=== PATIENT | female | born 1975 | race Caucasian/White ===

== ENCOUNTER 2017-01-12 04:00 | Emergency (ER) | payer OTHER ==
[~2017-01-12] VITALS: Ht 175.3 cm; Wt 55.0 kg
[~2017-01-12 04:00] MED LIST: ALBU1AER INH; AUGM875T PO; LEXA20TA PO
[2017-01-12 04:19] VITALS: BP 109/74; PULSE 79; RESP 16; TEMP 98.5; O2SAT 97
[2017-01-12] MEDS ORDERED: LEXA20TA PO (04:24)
--- NOTE | 2017-01-12 04:25 | PD ---
HPI Chief Complaint: Medical Clearance Time Seen by Provider: 04:19 Travel History International Travel<30 days: No Contact w/Intl Traveler<30days: No Traveled to known affect area: No History of Present Illness HPI 41-year-old white female presents to emergency department by EMS for medical clearance for detox. The patient states that she went out to [facility] earlier today but there are no beds available for detox. She states that she typically drinks a bottle of vodka a day. [facility] advised her to continue to drink and follow-up 1 a bed becomes available. She states that her significant other would not get her the vodka she typically drinks but rather got her a bottle of wine. She states that this was not significant enough. She feels as if she may be going through withdrawal. She states that she closed her eyes and sees colors. No palpitations, tachycardia or tremulousness. She denies any suicidal or homicidal ideation. No nausea vomiting. The patient states that in 2 weeks she'll be going to [place] for a inpatient 60 day rehabilitation. The patient states that she was hoping to become sober before she went into rehabilitation. PFSH Past Medical History Narrative Medical Alcohol abuse, Right forearm fracture Tetanus Vaccination: < 5 Years ?: Not LMP: 1 week Past Surgical History Narrative Surgical Right forearm fracture with ORIF Social History Alcohol Use: Yes Tobacco Use: Yes Substance Use: No Allergies-Medications (Allergen,Severity, Reaction): Coded Allergies: Wellbutrin (Verified Allergy, Intermediate, HIVES, 01/12/17) Reported Meds & Prescriptions Reported Meds & Active Scripts Active Reported Lexapro (Escitalopram Oxalate) 20 Mg Tab 20 Mg PO DAILY Review of Systems Except as stated in HPI: all other systems reviewed are Neg Physical Exam Narrative GENERAL: Well-nourished, well-developed patient. The patient is resting comfortable. She does not appear to be in any distress. She is not tachycardic nor is she hypertensive. No tremulousness. SKIN: Warm and dry. HEAD: Normocephalic and atraumatic. EYES: No scleral icterus. No injection or drainage. ENT: No nasal drainage noted. Mucous membranes pink. Airway patent. NECK: Supple, trachea midline. Moves head freely without obvious discomfort. CARDIOVASCULAR: Regular rate and rhythm without murmurs, gallops, or rubs. RESPIRATORY: Breath sounds equal bilaterally. No accessory muscle use. GASTROINTESTINAL: Abdomen soft, non-tender, nondistended. EXTREMITIES: No cyanosis or edema. BACK: Nontender without obvious deformity. No CVA tenderness. NEURO: Patient is alert and oriented. no sensorimotor deficits. Nonfocal. Normal speech. PSYCH: No delusions. No auditory or visual hallucinations. Data Data Last Documented VS Vital Signs Date Time Temp Pulse Resp B/P Pulse Ox O2 Delivery O2 Flow Rate FiO2 01/12/17 04:19 98.5 79 16 109/74 97 Orders Alcohol (Ethanol) (01/12/17 04:16) Lorazepam (Ativan) (01/12/17 04:30) [facility] Medical Decision Making Medical Screen Exam Complete: Yes Emergency Medical Condition: Yes Medical Record Reviewed: Yes Differential Diagnosis Differential diagnoses: Alcohol intoxication, substance abuse, electrolyte abnormality, malingering Narrative Course The patient states that she feels that she is going through withdrawals. She states that she is seeing colors when she closed her eyes. I see no overt physical findings of withdrawal. She is not tachycardic, tremulous, or hypertensive. The patient is given the benefit of the doubt and given 1 mg of Ativan by mouth. We will perform an alcohol level. We will attempt to contact her significant. We have contacted the [facility] and they have accepted her for detox. We will arrange transportation. This is chronic alcohol abuse Diagnosis Primary Impression: Chronic alcohol abuse Med/Other Pt SpecificInfo: No Change to Meds Disposition: 70 TRANSFER TO OTHER FACILITY Condition: Stable Denny Kay Jan 12, 2017 04:25 Condition: Stable Denny Kay Jan 12, 2017 04:25
[2017-01-12] MEDS ORDERED: LORazepam 1 MG TAB PO ONE ×2 (04:30→10:15)
[2017-01-12 07:38] VITALS: BP 112/76; PULSE 78; RESP 18; O2SAT 100
[2017-01-12 10:12] VITALS: BP 127/64; PULSE 78; RESP 18; O2SAT 99
== END 2017-01-12 10:33 | disposition home or self-care (01) ==
LOC: NEPD 04:00
DX: F10.10 Alcohol abuse, uncomplicated (principal); Y90.8 Blood alcohol level of 240 mg/100 ml or more
CPT/HCPCS: 80307; 99285

== ENCOUNTER 2017-01-16 08:55 | Emergency (ER) | payer OTHER ==
[~2017-01-16 08:55] MED LIST changes: -ALBU1AER INH; -AUGM875T PO
[2017-01-16 08:56] VITALS: PULSE 101; RESP 26; TEMP 97.8; O2SAT 100
[2017-01-16 09:00] VITALS: BP 132/76
[2017-01-16] MEDS ORDERED: SODIUM CHLOR 0.9% 1000 ML INJ 1,000 ML IV ONE (09:15)
[2017-01-16] MEDS ORDERED: LORazepam 2 MG/ML VIAL IV PUSH ONE (09:15)
--- NOTE | 2017-01-16 09:27 | PD ---
HPI Chief Complaint: Alcohol/Drug Intoxication Time Seen by Provider: 09:12 Travel History International Travel<30 days: No Contact w/Intl Traveler<30days: No Traveled to known affect area: No History of Present Illness HPI Is a 41 year-old woman presents to the emergency department complaining of alcohol withdrawal symptoms. She states that she is due to fly out to [place] in 4 days for alcohol treatment. She states that she with the [facility] and they did not have a bed for her. She is anxious. She describes tingling and cramping in her hands. She is worried because she's had seizures before. States she drinks alcohol daily. Last drink yesterday. History Past Medical History Narrative Medical Tobacco use Anxiety/depression Social History Alcohol Use: Yes Tobacco Use: Yes Allergies-Medications (Allergen,Severity, Reaction): Coded Allergies: Wellbutrin (Verified Allergy, Intermediate, HIVES, 01/12/17) Reported Meds & Prescriptions Reported Meds & Active Scripts Active Chlordiazepoxide HCl 25 Mg Capsule 25 Mg PO Q8HR PRN Reported Lexapro (Escitalopram Oxalate) 20 Mg Tab 20 Mg PO DAILY Review of Systems Except as stated in HPI: all other systems reviewed are Neg Physical Exam Narrative GENERAL: 41 year-old woman, anxious and tearful. SKIN: Focused skin assessment warm/dry. NECK: Trachea midline. No JVD. CARDIOVASCULAR: Regular rate and rhythm. No murmur appreciated. RESPIRATORY: Patient's hyperventilating. Does not appear to be in respiratory distress however. GASTROINTESTINAL: Abdomen soft, non-tender, nondistended. Hepatic and splenic margins not palpable. MUSCULOSKELETAL: No obvious deformities. No clubbing. No cyanosis. No edema. NEUROLOGICAL: Awake and alert. A little bit tremulous. No obvious cranial nerve deficits. Motor grossly within normal limits. Normal speech. Data Data Last Documented VS Vital Signs Date Time Temp Pulse Resp B/P Pulse Ox O2 Delivery O2 Flow Rate FiO2 01/16/17 10:05 75 16 109/65 98 01/16/17 09:11 Room Air 01/16/17 08:56 97.8 Orders Basic Metabolic Panel (Bmp) (01/16/17 09:12) Iv Access Insert/Monitor (01/16/17 09:12) Sodium Chlor 0.9% 1000 Ml Inj (Ns 1000 M (01/16/17 09:15) Lorazepam Inj (Ativan Inj) (01/16/17 09:15) Chlordiazepoxide (Librium) (01/16/17 09:52) Magnesium (Mg) (01/16/17 10:36) Potassium Chloride Eff (K-Lyte Cl Eff) (01/16/17 10:45) Magnesium Sulfate 1 Gm Premix (Magnesium (01/16/17 10:45) Electrocardiogram (01/16/17 ) Potassium Chlor 20 Meq Premix (Kcl 20 Me (01/16/17 10:45) Sodium Chlor 0.9% 1000 Ml Inj (Ns 1000 M (01/16/17 11:00) Labs Laboratory Tests Test 01/16/17 09:20 Sodium Level 135 MEQ/L Potassium Level 2.9 MEQ/L Chloride Level 101 MEQ/L Carbon Dioxide Level 19.3 MEQ/L Anion Gap 15 MEQ/L Blood Urea Nitrogen 8 MG/DL Creatinine 0.65 MG/DL Estimat Glomerular Filtration 100 ML/MIN Rate Random Glucose 90 MG/DL Calcium Level 8.4 MG/DL Magnesium Level 1.8 MG/DL MDM Medical Decision Making Medical Screen Exam Complete: Yes Emergency Medical Condition: Yes Interpretation(s) Labs: Low potassium Differential Diagnosis Alcohol withdrawal, anxiety, panic, depression, other Narrative Course Medical decision making Is a 41 year-old woman presents to the emergency department requesting treatment for alcoholism and alcohol withdrawal symptoms. She states she hasn' t really drank in in a couple days. She is extremely anxious and hyperventilating and tremulous. I think this is more to do with her anxiety has been flared up by her withdrawal symptoms. Her heart rate is not markedly elevated, vital signs are otherwise unremarkable. We'll recommend some IV fluid hydration, we'll check her electrolytes, we'll give her some Ativan. Her boyfriend is here with her. Could consider some outpatient Librium while waiting her flight out of state for long-term alcohol treatment. Diagnosis Primary Impression: Alcohol withdrawal Additional Impression: Alcoholism Additional Instructions: Use Librium as prescribed as needed for alcohol withdrawal symptoms. Do not drink alcohol while taking Librium. Take Bactrim if you have worsening pain redness or swelling on the facial wound. Apply warm compresses twice daily. Follow-up with your long-term alcohol treatment program as planned. Return to the emergency department for any new or worsening symptoms. Med/Other Pt SpecificInfo: Prescription(s) given Scripts Sulfamethoxazole-Trimethoprim (Bactrim DS)800-160 Mg Tab1 Tab PO BID 5 Days Prov:Bong Robins MD 01/16/17 Chlordiazepoxide HCl 25 Mg [id number] Mg PO Q8HR PRN (WITHDRAWAL) #15 Prov:Bong Robins MD 01/16/17 Disposition: 01 DISCHARGE HOME Condition: Stable Bong Robins MD Jan 16, 2017 09:27
[2017-01-16] MEDS ORDERED: chlordiazePOXIDE 25 MG CAP PO STA (09:52)
[2017-01-16 10:01] LABS: BICARBONATE 19.3 MEQ/L (21.0-32.0)
[2017-01-16 10:05] VITALS: BP 109/65; PULSE 75; RESP 16; O2SAT 98
[2017-01-16] MEDS ORDERED: CHLO25CA9 PO (10:21)
[2017-01-16 10:34] LABS: POTASSIUM 2.9 MEQ/L (3.5-5.1)
[2017-01-16] MEDS ORDERED: MAGNESIUM SULFATE 1 GM PREMIX 100 ML IV ONE (10:45)
[2017-01-16] MEDS ORDERED: POTASSIUM CHLOR 20 MEQ PREMIX 100 ML IV ONE (10:45)
[2017-01-16] MEDS ORDERED: POTASSIUM CHLORIDE 25 MEQ EFFERVESCENT TAB PO ONE (10:45)
[2017-01-16] MEDS ORDERED: SODIUM CHLOR 0.9% 1000 ML INJ 1,000 ML IV SCH (11:00)
[2017-01-16] MEDS ORDERED: BACT800T5 PO (11:26)
[2017-01-16 12:45] VITALS: BP 112/63; PULSE 75; RESP 16; O2SAT 98
[2017-01-16 13:39] VITALS: BP 119/63
--- NOTE | 2017-01-16 15:02 | EKG ---
Date Performed: 01/16/2017 Time Performed: 11:25:07 PTAGE: 41 years EKG: Sinus rhythm NORMAL ECG NO PREVIOUS TRACING DOCTOR: oRc Miranda Interpretating Date/Time 01/16/2017 15:00:17
== END 2017-01-16 13:49 | disposition home or self-care (01) ==
LOC: NEPD 08:55
DX: F10.239 Alcohol dependence with withdrawal, unspecified (principal); F10.20 Alcohol dependence, uncomplicated; R06.4 Hyperventilation; F41.9 Anxiety disorder, unspecified; F32.9 Major depressive disorder, single episode, unspecified; Z72.0 Tobacco use; Z79.899 Other long term (current) drug therapy
CPT/HCPCS: 80048; 83735; 93005; 96374; 96375; 99284; J2060; J3480; J7030